=== PATIENT | female | born 1940 | race Caucasian/White ===

== ENCOUNTER → 2022-09-07 16:08 | Outpatient (BNVA) | payer MEDICARE, SELFPAY | PROVIDERS: PCP Family Medicine; Visit Provider Internal Medicine Endocrinology, Diabetes & Metabolism | DX: D35.2 Benign neoplasm of pituitary gland (principal) | CPT/HCPCS: 99202 ==

== ENCOUNTER 2022-09-12 07:22 | Outpatient (REF) | payer MEDICARE, SELFPAY ==
[2022-09-12 08:40] LABS: Creatinine, mg/dL 113.27
[2022-09-12 14:10] LABS: Creatinine, 24Hr Urine 1.1 G/Day (1.0-2.0); Total Volume 24 Hour Urine 1000 mL
[2022-09-14 08:59] LABS: Prolactin 5.5 ng/mL
[2022-09-16 23:48] LABS: IGF-1 (Somatomedin C) 68 ng/mL (34-246); IGF-1 Z Score (Female) -0.8 SD (-2.0 - +2.0)
[2022-09-19 16:08] LABS: Cortisol Free, 24 Hr Urine 21.2 mcg/24 h (4.0-50.0); Creatinine, 24 Hr Urine 1.12 g/24 h (0.50-2.15); Total Volume, 24 Hr Urine 1000 mL
== END 2022-09-12 07:23 | disposition home or self-care (01) ==
LOC: HO.LAB 07:22
PROVIDERS: PCP Family Medicine; Visit Provider Internal Medicine Endocrinology, Diabetes & Metabolism
DX: D35.2 Benign neoplasm of pituitary gland (principal)
CPT/HCPCS: 36415; 82530; 82570; 84146; 84305

== ENCOUNTER → 2022-12-12 08:04 | Outpatient (BNVA) | payer MEDICARE, SELFPAY | PROVIDERS: PCP Family Medicine; Visit Provider Internal Medicine Endocrinology, Diabetes & Metabolism | DX: D35.2 Benign neoplasm of pituitary gland (principal) | CPT/HCPCS: 99212 ==

== ENCOUNTER 2023-06-05 09:18 | Day surgery (SDC) | payer MEDICARE, SELFPAY ==
--- NOTE | 2023-06-04 08:58 | HO.ANESPROP2 ---
Documented by User: Tori Delacruz NP 06/04/23 11:01 HPI - Anesthesia Eval Consult details Narrative: 82yo F for Upper Endoscopy with Balloon Dilitation PMFSH Active Problems Active Problems: All Active Problems (Updated 09/07/22 @ 16:15 by Patrick Barkley MD) Pituitary adenoma (Acute) Past Medical History Medical History IBS (irritable bowel syndrome) Fatty liver HTN (hypertension) Diabetes HLD (hyperlipidemia) Pituitary adenoma Family History Family History Mother Congestive heart failure Cardiac arrest Father Stroke Hypertension Surgical History Surgical History Hx of cervical discectomy Hx of bilateral cataract extraction History of carpal tunnel release of both wrists Hx of eye surgery Hx of arthroscopy of left knee Hx of lumbar discectomy Hx of nasal septoplasty Hx of dilation and curettage Social History Social History Household Members: Spouse Household Members Other:: (Craig) Alcohol intake: current Alcohol intake frequency: 0-2 drinks per day Alcohol type: wine and hard liquor Patient Tobacco Use Status: Former Tobacco user Quit Date: 1987 Advance Directives: No Advance Directives Information Provided: Yes Meds Allergies Allergy/AdvReac Type Severity Reaction Status Date / Time ciprofloxacin [From CIPRO] Allergy Unknown RASH Verified 06/05/23 09:27 Penicillins [PENICILLINS] Allergy Unknown RASH Verified 06/05/23 09:28 Sulfa (Sulfonamide Allergy Unknown HEADACH Verified 06/05/23 09:28 Antibiotics) AND NAUSEA [SULFA (SULFONAMIDE ANTIBIOTICS)] Bactrim Allergy Intermediate Stomach Uncoded 12/12/22 08:19 Upset Demerol Allergy Unknown headache Uncoded 12/12/22 08:19 From CIPRO Allergy Unknown RASH Uncoded 12/12/22 08:19 From DEMEROL Allergy Unknown HEADACHE Uncoded 12/12/22 08:19 AND NAUSEA Penicillin Allergy Unknown Rash Uncoded 12/12/22 08:19 Percocet Allergy Unknown Stomach Uncoded 12/12/22 08:19 Upset Statins Support Allergy Unknown Unknown Uncoded 12/12/22 08:19 Sulfa Allergy Unknown Unknown Uncoded 12/12/22 08:19 Home Medications Medication Instructions Recorded Confirmed Last Taken Type amlodipine 5 mg tablet 5 mg PO DAILY 09/07/22 Unknown History nateglinide 60 mg tablet 60 mg PO TID 09/07/22 Unknown History oxybutynin chloride 10 mg 10 mg PO DAILY 09/07/22 Unknown History tablet,extended release 24 hr trazodone 50 mg tablet 25 mg PO BEDTIME 09/07/22 Unknown History vitamin B complex 1 tab PO DAILY 09/07/22 Unknown History Assessment and Plan Assessment Anesthesia Assessment: Chart Reviewed Documented by User: Becki Florence MD 06/05/23 09:55 PMFSH Past Medical History Medical History IBS (irritable bowel syndrome) Fatty liver HTN (hypertension) Diabetes HLD (hyperlipidemia) Pituitary adenoma Family History Family History Mother Congestive heart failure Cardiac arrest Father Stroke Hypertension Family history of problems with anesthesia: No Surgical History Surgical History Hx of cervical discectomy Hx of bilateral cataract extraction History of carpal tunnel release of both wrists Hx of eye surgery Hx of arthroscopy of left knee Hx of lumbar discectomy Hx of nasal septoplasty Hx of dilation and curettage History of Problems with Anesthesia: No Social History Social History Household Members: Spouse Household Members Other:: (Craig) Alcohol intake: current Alcohol intake frequency: 0-2 drinks per day Alcohol type: wine and hard liquor Patient Tobacco Use Status: Former Tobacco user Quit Date: 1987 Advance Directives: No Advance Directives Information Provided: Yes Meds Allergies Allergy/AdvReac Type Severity Reaction Status Date / Time ciprofloxacin [From CIPRO] Allergy Unknown RASH Verified 06/05/23 09:27 Penicillins [PENICILLINS] Allergy Unknown RASH Verified 06/05/23 09:28 Sulfa (Sulfonamide Allergy Unknown HEADACH Verified 06/05/23 09:28 Antibiotics) AND NAUSEA [SULFA (SULFONAMIDE ANTIBIOTICS)] Bactrim Allergy Intermediate Stomach Uncoded 12/12/22 08:19 Upset Demerol Allergy Unknown headache Uncoded 12/12/22 08:19 From CIPRO Allergy Unknown RASH Uncoded 12/12/22 08:19 From DEMEROL Allergy Unknown HEADACHE Uncoded 12/12/22 08:19 AND NAUSEA Penicillin Allergy Unknown Rash Uncoded 12/12/22 08:19 Percocet Allergy Unknown Stomach Uncoded 12/12/22 08:19 Upset Statins Support Allergy Unknown Unknown Uncoded 12/12/22 08:19 Sulfa Allergy Unknown Unknown Uncoded 12/12/22 08:19 Home Medications Medication Instructions Recorded Confirmed Last Taken Type amlodipine 5 mg tablet 5 mg PO DAILY 09/07/22 Unknown History nateglinide 60 mg tablet 60 mg PO TID 09/07/22 Unknown History oxybutynin chloride 10 mg 10 mg PO DAILY 09/07/22 Unknown History tablet,extended release 24 hr trazodone 50 mg tablet 25 mg PO BEDTIME 09/07/22 Unknown History vitamin B complex 1 tab PO DAILY 09/07/22 Unknown History Exam Airway Mallampati Class: II TM Dist: >3cm Neck ROM: Full Heart: rrr Lungs: cta Assessment and Plan Assessment Anesthesia Assessment: Anesthesia Plan Discussed Final Anesthetic Review Family History of Problems with Anesthesia: No History of Problems with Anesthesia: No NPO: Yes ASA Class: III Final Preanesthetic Review: No Changes in Pt Med Stat, Meds/Allgs Chart Reviewed, Consent Obtained/Reviewed and Anes Risks/Benef Reviewed Patient Risk: Intermediate Procedure Risk: Low Anesthetic Plan Anesthetic Plan: MAC: Disposition: Standard PACU
[2023-06-05 09:42] VITALS: BP 153/61; PULSE 62; RESP 16; TEMP 36.4; O2SAT 97; BMI 31.3
[2023-06-05 09:56] LABS: Glucose, Whole Blood 170 mg/dL (60-115)
[2023-06-05] MEDS: Lactated Ringers 1,000 ML 100 ML IVCONT (10:00)
[2023-06-05 11:00] VITALS: BP 136/61; PULSE 64; RESP 16; TEMP 36.2; O2SAT 94
--- NOTE | 2023-06-05 11:08 | P.BOP_ITS ---
Brief Operative Note Date of Service: 06/05/23 Pre-op diagnosis: Dysphagia Post-op diagnosis: other (GERD, Nonobstructing distal esophageal ring, R/O EoE) Procedure: EGD with Balloon dilation of distal esophageal ring from 18 to 19mm, and bi opsies Surgeon: Patrick Edwards MD Anesthesia: MAC Was an Retail Sales Director used for this Procedure?: No Estimated blood loss (mL): 2.0 Pathology: other (A. Esophagus 20-25cm, R/O EoE) Condition: stable Disposition: PACU
[2023-06-05 11:15] VITALS: BP 151/66; PULSE 65; RESP 16; TEMP 36.2; O2SAT 96
--- NOTE | 2023-06-05 11:52 | OP_ITS ---
DATE OF SERVICE: 06/05/2023 SURGEON: Patrick Edwards MD INDICATIONS: The patient presents for evaluation of dysphagia and abnormal barium swallow. Full consent has been obtained from her for this, including risks of bleeding and perforation. PREOPERATIVE DIAGNOSIS: POSTOPERATIVE DIAGNOSIS: PROCEDURE PERFORMED: Esophagogastroduodenoscopy with balloon dilation of distal esophageal ring, and biopsies. ESTIMATED BLOOD LOSS: COMPLICATIONS: ANESTHESIA: Monitored anesthesia care. ASSISTANTS: SPECIMENS: PREOPERATIVE DIAGNOSES: Dysphagia and abnormal barium swallow. POSTOPERATIVE DIAGNOSES: Dysphagia and abnormal barium swallow, nonobstructing distal esophageal ring, gastroesophageal reflux, small hiatal hernia, rule out eosinophilic esophagitis. DESCRIPTION OF PROCEDURE: The patient was placed in the left lateral decubitus position. The Olympus video gastroscope was passed in the posterior oropharynx and upper esophagus under direct vision. The scope was passed slowly to the distal esophagus. The gastroesophageal junction appeared at 37 cm. There was some evidence of edema and erythema but no esophagitis. There appeared to be a nonobstructing distal esophageal ring with insufflation of air. However, the scope easily entered the stomach. There was a small hiatal hernia. The scope was advanced to the pylorus and the duodenum was cannulated to the descending portion. The duodenum including the bulb appeared normal without mass or ulceration. The scope was withdrawn back into the stomach. The gastric antrum and body appeared normal with good peristalsis. Scope was retroflexed visualizing the proximal stomach carefully, which appeared normal, without any sign of mass or ulceration. The scope was straightened and withdrawn back to the esophagus. I did use a [employer] incremental balloon to dilate the gastroesophageal junction from 18 mm to 19 mm at the recommended pressure for 60 seconds each. Post-dilation, there was definitely heme noted and some disruption of the EG junction at the area of the esophageal ring. The scope was then withdrawn through the remainder the esophagus. The esophageal mucosa appeared normal. There was no evidence of any proximal esophageal rings. Biopsies were obtained between 20 cm and 25 cm. The scope was withdrawn from the patient. The visualization of the vocal cords and pharynx appeared unremarkable, although the exam was not complete due to some coughing and secretions. The scope was withdrawn from the patient. She tolerated the procedure well and was returned to the recovery area in stable condition. IMPRESSION: 1. Small hiatal hernia, gastroesophageal reflux, nonobstructing distal esophageal ring. Status post balloon dilation. 2. Rule out eosinophilic esophagitis. PLAN: The results of the biopsies will be checked. I shall start her on omeprazole 20 mg daily. Hopefully, by suppressing any acid reflux and preventing any esophageal spasm, along with today's dilation, she will have some relief of her swallowing issues and discomfort. If things are stable, she can see me again on a p.r.n. basis. This has all been discussed with her . MD HEATHER Novoa/KRISTY / [id number] MTDD
== END 2023-06-05 13:10 | disposition home or self-care (01) ==
PROVIDERS: PCP Family Medicine; Visit Provider Internal Medicine
PROC: (CPT 43249; principal; 2023-06-05 10:30)
DX: K22.2 Esophageal obstruction (principal); K44.9 Diaphragmatic hernia without obstruction or gangrene; K21.9 Gastro-esophageal reflux disease without esophagitis; R13.19 Other dysphagia; R93.3 Abnormal findings on diagnostic imaging of other parts of digestive tract; D35.2 Benign neoplasm of pituitary gland; E11.9 Type 2 diabetes mellitus without complications; I10 Essential (primary) hypertension; E78.5 Hyperlipidemia, unspecified; K76.0 Fatty (change of) liver, not elsewhere classified; Z87.891 Personal history of nicotine dependence; Z79.899 Other long term (current) drug therapy
CPT/HCPCS: 43249; 43239; 82947; 88305; C1726; J2704

== ENCOUNTER 2023-06-12 08:24 | Outpatient (AMB) | payer MEDICARE, SELFPAY ==
--- NOTE | 2023-06-12 08:28 | A.OFFVIS_ITS ---
Intake Vital Signs 06/12/23 08:29 Height 5 ft 3 in Weight 177 lb 7.554 oz BMI 31.4 BP 132/58 L Blood Pressure Location Rt brachial Position Sitting Pulse 62 Pulse Source Pulse Oximeter Intake Visit Reasons: Pituitary adenoma Intake Note: Patient presentf or Pituitary Adenoma follow up visit. Field Talent Qualification Specialist Required: No Allergies ciprofloxacin [From CIPRO] Allergy (Unknown, Verified 06/12/23 08:31) RASH Penicillins [PENICILLINS] Allergy (Unknown, Verified 06/12/23 08:31) RASH Sulfa (Sulfonamide Antibiotics) [SULFA (SULFONAMIDE ANTIBIOTICS)] Allergy (Unknown, Verified 06/12/23 08:31) HEADACH AND NAUSEA Bactrim Allergy (Intermediate, Uncoded 06/12/23 08:31) Stomach Upset Demerol Allergy (Unknown, Uncoded 06/12/23 08:31) headache From CIPRO Allergy (Unknown, Uncoded 06/12/23 08:31) RASH From DEMEROL Allergy (Unknown, Uncoded 06/12/23 08:31) HEADACHE AND NAUSEA Penicillin Allergy (Unknown, Uncoded 06/12/23 08:31) Rash Percocet Allergy (Unknown, Uncoded 06/12/23 08:31) Stomach Upset Statins Support Allergy (Unknown, Uncoded 06/12/23 08:31) Unknown Sulfa Allergy (Unknown, Uncoded 06/12/23 08:31) Unknown HPI HPI Comments History of Present Illness Details This is 82-year-old white female referred to endocrinology for 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 Pt saw endo in past at [facility] Dr. Sb Bal in 2014 . There is no hormonal workup available for review.. MRI showed 1.8 x 1.8 cm macroadenoma present since 2019 with invasion of left cavernous sinus No headaches Has blurry vision. Sees Dr. Torres who did visual fileds .. Patient has undergone ophthalmological evaluation. She denies galactorrhea. She denies symptoms of acromegaly but noted enlargement of feet Has carpal tunnel syndrome She is postmenopausal. Visual [place] done by tenant coordinator are not available.MRI 06/14 showed no change in size of adenoma. No sx of hyperprolactinemia or GH excess. Followed by Dr. Bazzi at [facility] Medical History (Updated 06/12/23 @ 08:32 by JARRED Gomes) IBS (irritable bowel syndrome) Fatty liver HTN (hypertension) Diabetes HLD (hyperlipidemia) Pituitary adenoma Surgical History History of esophageal dilatation Hx of cervical discectomy Hx of bilateral cataract extraction History of carpal tunnel release of both wrists Hx of eye surgery Hx of arthroscopy of left knee Hx of lumbar discectomy Hx of nasal septoplasty Hx of dilation and curettage Family History Mother Congestive heart failure Cardiac arrest Father Stroke Hypertension Social History Household Members: Spouse Household Members Other:: (Craig) Alcohol intake: current Alcohol intake frequency: 0-2 drinks per day Alcohol type: wine and hard liquor Patient Tobacco Use Status: Former Tobacco user Quit Date: 1987 Physical Exam Vital Signs: Last Vital Signs Pulse 62 06/12/23 08:29 BP 132/58 L 06/12/23 08:29 BMI result Body Mass Index 31.4 Assessment & Plan Assessment & Plan (1) Pituitary adenoma: Code(s): D35.2 - Benign neoplasm of pituitary gland Plan: This 82-year-old white female with a history of a macroadenoma the pituitary present since 2019. The adenoma invades left cavernous sinus. Hormonal workup showed pituitary adenoma was non secretory The plan is to obtain the visual field studies. . Otherwise will continue to follow. Patient will follow-up with Dr. bean of Neurosurgery Coding Level of Care Code Est Pt Level 3 (86867) Diagnoses Pituitary adenoma D35.2
[2023-06-12 08:29] VITALS: BP 132/58; PULSE 62; BMI 31.4
== END 2023-06-12 09:15 | disposition home or self-care (01) ==
PROVIDERS: PCP Family Medicine; Visit Provider Internal Medicine Endocrinology, Diabetes & Metabolism
DX: D35.2 Benign neoplasm of pituitary gland (principal)
CPT/HCPCS: 99213

== ENCOUNTER → 2023-06-12 08:24 | Outpatient (BNVA) | payer MEDICARE, SELFPAY | PROVIDERS: PCP Family Medicine; Visit Provider Internal Medicine Endocrinology, Diabetes & Metabolism | DX: D35.2 Benign neoplasm of pituitary gland (principal) | CPT/HCPCS: 99212 ==

== ENCOUNTER 2024-06-11 07:57 | Outpatient (AMB) | payer MEDICARE, SELFPAY ==
--- NOTE | 2024-06-11 08:00 | MHC.OFFVIS ---
Vital Signs 06/11/24 08:01 Height 5 ft 3 in Weight 179 lb 3.773 oz BMI 31.7 BP 140/64 H Blood Pressure Location Rt brachial Position Sitting Pulse 59 Pulse Source Pulse Oximeter Intake Visit Reasons: f/u pituitary macroadenoma Intake Note: Patient present for Pituitary Adenoma follow up visit. Customer Complaint Clerk Required: No Accompanied by: Spouse Allergies ciprofloxacin [From CIPRO] Allergy (Unknown, Verified 06/11/24 08:05) RASH Penicillins [PENICILLINS] Allergy (Unknown, Verified 06/11/24 08:05) RASH Sulfa (Sulfonamide Antibiotics) [SULFA (SULFONAMIDE ANTIBIOTICS)] Allergy (Unknown, Verified 06/11/24 08:05) HEADACH AND NAUSEA Bactrim Allergy (Intermediate, Uncoded 06/11/24 08:05) Stomach Upset Demerol Allergy (Unknown, Uncoded 06/11/24 08:05) headache From CIPRO Allergy (Unknown, Uncoded 06/11/24 08:05) RASH From DEMEROL Allergy (Unknown, Uncoded 06/11/24 08:05) HEADACHE AND NAUSEA Penicillin Allergy (Unknown, Uncoded 06/11/24 08:05) Rash Percocet Allergy (Unknown, Uncoded 06/11/24 08:05) Stomach Upset Statins Support Allergy (Unknown, Uncoded 06/11/24 08:05) Unknown Sulfa Allergy (Unknown, Uncoded 06/11/24 08:05) Unknown Metformin Adverse Reaction (Unknown, Uncoded 06/11/24 08:05) Cramping, Diarrhea Medication List - Last Reconciled 06/11/24 by Patrick Barkley MD amlodipine 5 mg PO DAILY apixaban (Eliquis) 2.5 mg PO BID ascorbic acid (vitamin C) 1 g PO Q6H eflornithine 13.9% appl topical escitalopram oxalate 10 mg PO DAILY insulin glargine (Basaglar KwikPen U-100 Insulin) 13 units subcut QAM losartan 25 mg PO DAILY minoxidil-finasteride 5-0.1 % mL topical nateglinide 60 mg PO TID oxybutynin chloride ER 10 mg PO DAILY prednisone 10 mg PO DAILY trazodone 25 mg PO BEDTIME vitamin B complex 1 tab PO DAILY HPI Comments Details: This is 83-year-old white female referred to endocrinology for 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 Pt saw endo in past at [facility] Dr. Sb Bal in 2014 . There is no hormonal workup available for review.. MRI showed 1.8 x 1.8 cm macroadenoma present since 2018 with invasion of left cavernous sinus No headaches Has blurry vision. Sees Dr. Torres who did visual fileds .. Patient has undergone ophthalmological evaluation. She denies galactorrhea. She denies symptoms of acromegaly but noted enlargement of feet Has carpal tunnel syndrome She is postmenopausal. Visual [place] done by crop duster helper are not available.MRI 06/14 showed no change in size of adenoma. No sx of hyperprolactinemia or GH excess. Was Followed by Dr. Bazzi at [facility] . Does complain of increased thirst and urination history of type 2 diabetes [facility] Medical History (Updated 06/12/23 @ 08:32 by JARRED Gomes) IBS (irritable bowel syndrome) Fatty liver HTN (hypertension) Diabetes HLD (hyperlipidemia) Pituitary adenoma Surgical History History of esophageal dilatation Hx of cervical discectomy Hx of bilateral cataract extraction History of carpal tunnel release of both wrists Hx of eye surgery Hx of arthroscopy of left knee Hx of lumbar discectomy Hx of nasal septoplasty Hx of dilation and curettage Family History Mother Congestive heart failure Cardiac arrest Father Stroke Hypertension Social History Household Members: Spouse Household Members Other:: (Craig) Alcohol intake: current Alcohol intake frequency: 0-2 drinks per day Alcohol type: wine and hard liquor Patient Tobacco Use Status: Former Tobacco user Physical Exam Const Other: Absence of cushingoid or acromegalic features. Thyroid gland is normal size weighs about 15 g. There are no thyroid nodules palpated. Lungs are clear to auscultation. Abdominal exam is benign There is no visual field cut by gross confrontation Assessment & Plan Assessment & Plan (1) Pituitary adenoma: Code(s): D35.2 - Benign neoplasm of pituitary gland Category: Medical Plan: This 82-year-old white female with a history of a macroadenoma the pituitary present since 2019. The adenoma invades left cavernous sinus. Hormonal workup showed pituitary adenoma was non secretory The plan is to obtain Dr. Bazzi's notes an MRI that was performed at [facility] in 06/2023. . Will check basic metabolic panel, plasma and urine osmolality as well as HbA1c to rule out diabetes insipidus uncontrolled diabetes mellitus. We will also refer patient for 2nd opinion to Dr. Juany Cooper a specialist in pituitary tumors at [facility]. Will have patient follow up after an appointment with Dr. Cooper Orders: Orders Basic Metabolic Panel Today D35.2 - Benign neoplasm of pituitary gland Hemoglobin A1c Today D35.2 - Benign neoplasm of pituitary gland Osmolality Urine Today D35.2 - Benign neoplasm of pituitary gland Osmolality, Serum Today D35.2 - Benign neoplasm of pituitary gland Referrals Neurosurgery Referral D35.2 - Benign neoplasm of pituitary gland Coding Level of Care Code Est Pt Level 3 (39623) Diagnoses Pituitary adenoma D35.2
[2024-06-11 08:01] VITALS: BP 140/64; PULSE 59; BMI 31.7
== END 2024-06-11 08:42 | disposition home or self-care (01) ==
PROVIDERS: PCP Family Medicine; Visit Provider Internal Medicine Endocrinology, Diabetes & Metabolism
DX: D35.2 Benign neoplasm of pituitary gland (principal)
CPT/HCPCS: 99213

== ENCOUNTER 2024-06-11 08:50 | Outpatient (REF) | payer MEDICARE, SELFPAY ==
[2024-06-11 10:43] LABS: Anion Gap 14 (12-20); Blood Urea Nitrogen 10 mg/dL (9-16); Calcium 9.2 mg/dL (8.4-10.2); Carbon Dioxide 26 mmol/L (22-29); Chloride 105 mmol/L (96-108); Estimated Glomerular Filt Rate > 60; Glucose Random 123 mg/dL (60-115); Potassium 3.8 mmol/L (3.3-5.1); Sodium 141 mmol/L (135-145)
[2024-06-11 10:44] LABS: Estimated Average Glucose 183 mg/dL; Hemoglobin A1C 249.5228 umol/L; Total Hemoglobin (HGBA1C) 3935.3516 umol/L
[2024-06-11 10:52] LABS: Osmolality, Serum 291 mosm/kg (281-305)
[2024-06-11 11:39] LABS: Osmolality Urine 518 mosm/kg (373-1093)
== END 2024-06-11 08:51 | disposition home or self-care (01) ==
LOC: HO.10HDL 08:50
PROVIDERS: Visit Provider Internal Medicine Endocrinology, Diabetes & Metabolism
DX: Z13.1 Encounter for screening for diabetes mellitus (principal); D35.2 Benign neoplasm of pituitary gland
CPT/HCPCS: 36415; 80048; 83036; 83930; 83935